=== PATIENT | female | born 1940 | race Caucasian/White ===

== ENCOUNTER 2020-05-09 20:27 | Emergency (ER) | payer MEDICARE, BC ==
[2020-05-09 20:37] VITALS: BP 163/86; PULSE 89
--- NOTE | 2020-05-09 20:52 | EDM.PDOC ---
ED HPI GENERAL MEDICAL PROBLEM - General Chief Complaint: General Stated Complaint: CHECK YOUR BLOOD PRESSURE AND SODIUM PER PT Time Seen by Provider: 05/09/20 20:39 - History of Present Illness INITIAL COMMENTS - FREE TEXT/NARRATIVE: Patient comes emergency department today with complaints of elevated blood pressure and lightheadedness. This patient was at home today and felt a brief episode about 3 hours ago of lightheadedness. She did not have any vertigo symptoms or visual disturbances. No headache. Because of lightheadedness she checked her blood pressure and noted that it was a little bit higher than normal about 160/90. She has been recently struggling with hyponatremia and just discontinued the salt tablet she was taking at home due to her hyponatremia. She really is asymptomatic upon arrival and feels back to normal. She has no headache visual disturbances. No paresthesias. No weakness dizziness lightheadedness. No chest pain no shortness of breath or difficulty breathing. No fever no chills. No abdominal pain. No nausea no vomiting. No hematuria dysuria or urinary frequency. She does feel like she has not been urinating as much as normal. And it somewhat difficult to urinate at times. She denies any Covid exposure and denies covid symptoms. - Related Data Allergies Allergy/AdvReac Type Severity Reaction Status Date / Time cephalexin Allergy Rash Verified 05/09/20 20:39 Home Meds: Home Meds Alendronate Sodium [Fosamax] 70 mg PO WEEKLY 02/15/16 [History] Losartan [Cozaar] 50 mg PO DAILY 02/15/16 [History] Calcium Carbonate/Vitamin D3 [Calcium 250+D] 1 tab PO DAILY 02/17/16 [History] Fish Oil/Borage/Flax/Om3,6,9 1 [[place] 3-6-9 Complex Softgel] 400 mg PO DAILY 02/17/16 [History] Multivitamin [Multivitamins] 1 each PO DAILY 02/17/16 [History] Cranberry Fruit Extract [Cranberry] 200 mg PO DAILY #1 capsule 02/19/16 [Rx] Triamterene/Hydrochlorothiazid [Triamterene-HCTZ 37.5-25 MG] 1 tab PO DAILY 07/21 [History] amLODIPine [Norvasc] 5 mg PO DAILY 05/09/20 [History] Past Medical History Cardiovascular History: Reports: Hypertension 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: Endocrine/Metabolic History: Reports: Osteoporosis Dermatologic History: Reports: Other (See Below) Other Dermatologic History: small spot of "skin cancer" 30 years ago - Infectious Disease History Infectious Disease History: Reports: Measles, Mumps - Past Surgical History HEENT Surgical History: Reports: Tonsillectomy Cardiovascular Surgical History: Reports: None GI Surgical History: Reports: Appendectomy, Cholecystectomy Other GI Surgeries/Procedures: cholecystectomy in 1942 and appendectomy in 1944 Social & Family History - Family History Family Medical History: Noncontributory - Tobacco Use Smoking Status *Q: Never Smoker Second Hand Smoke Exposure: No - Caffeine Use Caffeine Use: Reports: Coffee - Alcohol Use Date of Last Drink: 04/18/20 - Recreational Drug Use Recreational Drug Use: No ED ROS GENERAL - Review of Systems Review Of Systems: Comprehensive ROS is negative, except as noted in HPI. ED EXAM, GENERAL - Physical Exam Exam: See Below Exam Limited By: No Limitations General Appearance: Alert, WD/WN, No Apparent Distress Eye Exam: Bilateral Eye: EOMI, PERRL Ears: Normal External Exam Nose: Normal Inspection Throat/Mouth: Normal Inspection, Normal Lips Head: Atraumatic, Normocephalic Neck: Normal Inspection, Supple, Non-Tender Respiratory/Chest: No Respiratory Distress, Lungs Clear, Normal Breath Sounds, No Accessory Muscle Use Cardiovascular: Normal Peripheral Pulses, Regular Rate, Rhythm Peripheral Pulses: 2+: Radial (L), Radial (R), Posterior Tibial (L), Posterior Tibial (R), Dorsalis Pedis (L), Dorsalis Pedis (R) GI/Abdominal: Normal Bowel Sounds, Soft, Non-Tender (Female) Exam: Deferred Rectal (Female) Exam: Deferred Back Exam: Normal Inspection, Full Range of Motion Extremities: Normal Inspection, Normal Range of Motion, Normal Capillary Refill Neurological: Alert, Oriented, Normal Cognition, No Motor/Sensory Deficits Psychiatric: Normal Affect, Normal Mood Skin Exam: Warm, Dry, Intact, Normal Color, No Rash EKG INTERPRETATION EKG Date: 05/09/20 Time: 20:37 Rhythm: NSR Rate (Beats/Min): 82 [place]: Normal P-Wave: Present QRS: Normal ST-T: Normal QT: Normal Comparison: NA - No Prior EKG Course - Vital Signs Last Recorded V/S: Last Vital Signs Temp 97.7 F 07/09/20 20:36 Pulse 89 05/09/20 20:36 Resp 19 05/09/20 20:36 BP 163/86 H 05/09/20 20:36 Pulse Ox 100 05/09/20 20:36 - Orders/Labs/Meds Orders: Active Orders 24 hr Category Date Time Status EKG Documentation Completion [RC] STAT Care 05/09/20 20:46 Active CULTURE URINE [RM] Stat Lab 05/09/20 22:27 Received Labs: Laboratory Tests 05/09/20 05/09/20 05/09/20 Range/Units 20:55 20:55 22:27 WBC 5.7 (5.0-10.0) 10^3/uL RBC 4.62 (4.2-5.4) 10^6/uL Hgb 13.2 D (12.0-16.0) g/dL Hct 40.4 (37.0-47.0) % MCV 87.4 (80-100) fL MCH 28.6 (27.0-34.0) pg MCHC 32.7 L (33.0-35.0) g/dL Plt Count 360 (150-450) 10^3/uL Neut % (Auto) 58.8 (42.2-75.2) % Lymph % (Auto) 28.5 (20.5-50.1) % [place] % (Auto) 10.4 H (2-8) % Eos % (Auto) 1.8 (1.0-3.0) % Baso % (Auto) 0.5 (0.0-1.0) % Sodium 137 (136-145) mmol/L Potassium 3.7 (3.5-5.1) mmol/L Chloride 101 (98-107) mmol/L Carbon Dioxide 27 (21-32) mmol/L Anion Gap 12.7 (7-13) mEq/L BUN 17 (7-18) mg/dL Creatinine 0.72 (0.55-1.02) mg/dL Est Cr Clr Drug Dosing 44.02 mL/min Estimated GFR (MDRD) > 60 BUN/Creatinine Ratio 23.6 (No establ ref range) Glucose 119 H (74-99) mg/dL Calcium 8.9 (8.5-10.1) mg/dL Magnesium 2.0 (1.8-2.4) mg/dL Total Bilirubin 0.4 (0.2-1.0) mg/dL AST 21 (15-37) U/L ALT 25 (14-59) U/L Alkaline Phosphatase 48 (46-116) U/L Troponin I < 0.017 (0.000-0.056) ng/mL Total Protein 7.2 (6.4-8.2) g/dL Albumin 4.0 (3.4-5.0) g/dL Globulin 3.2 Albumin/Globulin Ratio 1.3 Urine Color Light yellow (YELLOW) Urine Appearance Slightly cloudy (CLEAR) Urine pH 7.5 (5.0-9.0) Ur Specific [place] 1.020 (1.005-1.030) Urine Protein Negative (NEGATIVE) Urine Glucose (UA) Negative (NEGATIVE) Urine Ketones 15 H (NEGATIVE) Urine Occult Blood Trace-lysed H (NEGATIVE) Urine Nitrite Negative (NEGATIVE) Urine Bilirubin Negative (NEGATIVE) Urine Urobilinogen 0.2 (0.2-1.0) mg/dL Ur Leukocyte Esterase Small H (NEGATIVE) Urine RBC 0-5 /HPF Urine WBC 20-30 H (0-5/HPF) /HPF Ur Epithelial Cells Moderate H (NOT SEEN) /HPF Urine Bacteria Moderate H (0-FEW/HPF) /HPF Meds: Medications Discontinued Medications Generic Name Dose Route Start Last Admin Trade Name Freq PRN Reason Stop Dose Admin Nitrofurantoin Macrocrystals 100 mg 05/09/20 22:48 05/09/20 22:56 Macrobid PO 05/09/20 22:49 100 mg ONETIME ONE Administration - Re-Assessments/Exams Free Text/Narrative Re-Assessment/Exam: 05/10/20 00:30 Patient's EKG was unremarkable. Her symptoms resolved pretty much prior to arrival. Are pretty unremarkable other than a urinalysis that shows a urinary tract infection. She does have some vague urinary symptoms therefore we will put her on Macrobid 1 tab p.o. twice daily. Is really concerned about her blood pressure. I told her to check her blood pressure once a day and follow-up with her primary care on Wednesday. Her sodium is in the appropriate range as she is struggled with hyponatremia in the past. She feels much better and she is ready for discharge. She is comfortable with this plan and her questions are answered. Departure - Departure Time of Disposition: 22:49 Disposition: Home, Self-Care 01 Clinical Impression: Lightheadedness Hypertension Qualifiers: Hypertension type: unspecified Qualified Code(s): I10 - Essential (primary) hypertension UTI (urinary tract infection) Qualifiers: Urinary tract infection type: site unspecified Hematuria presence: without hematuria Qualified Code(s): N39.0 - Urinary tract infection, site not specified - Discharge Information Instructions: Hypertension, Adult, [id number] Forms: ED Department Discharge Additional Instructions: Check your blood pressure once daily and record. Report your pressures to your PCP on Wednesday. Your sodium looks great today. Make sure and drink some water as well. Macrobid, 1 tablet twice daily for the next 3 days. Return to the ED if new or worsening symptoms. Sepsis Event Note (ED) - Evaluation Sepsis Screening Result: No Definite Risk - Focused Exam Vital Signs: Vital Signs Temp Pulse Resp BP Pulse Ox 05/09/20 20:36 97.7 F 89 19 163/86 H 100 - My Orders Last 24 Hours: My Active Orders 05/09/20 20:46 EKG Documentation Completion [RC] STAT 05/09/20 22:27 CULTURE URINE [RM] Stat - Assessment/Plan Last 24 Hours: My Active Orders 05/09/20 20:46 EKG Documentation Completion [RC] STAT 05/09/20 22:27 CULTURE URINE [RM] Stat Assessment:: Hypertension Lightheadedness resolved prior to arrival. UTI Plan: Check your blood pressure once daily and record. Report your pressures to your PCP on Wednesday. Your sodium looks great today. Make sure and drink some water as well. Macrobid, 1 tablet twice daily for the next 3 days. Return to the ED if new or worsening symptoms.
[2020-05-09 22:04] LABS: ANION GAP 12.7 mEq/L (7-13); CHLORIDE,CL 101 mmol/L (98-107); SODIUM,NA 137 mmol/L (136-145)
[2020-05-09] MEDS ORDERED: Nitrofurantoin Monohydrate/Macrocrystalline 100 MG Cap PO ONE (22:48)
== END 2020-05-09 22:57 | disposition home or self-care (01) ==
LOC: DL.ED 20:27
DX: N39.0 Urinary tract infection, site not specified (principal); I10 Essential (primary) hypertension; Z88.1 Allergy status to other antibiotic agents; Z79.899 Other long term (current) drug therapy
CPT/HCPCS: 36415; 80053; 81001; 83735; 84484; 85025; 87086; 93005; 99284; A9270

== ENCOUNTER 2020-05-13 18:26 | Observation (INO) | payer MEDICARE, BC ==
[2020-05-13] MEDS ORDERED: Temazepam 15 MG Cap PO PRN (20:53)
[2020-05-13] MEDS ORDERED: Acetaminophen 325 MG Tab PO PRN (20:53)
[2020-05-13] MEDS ORDERED: Docusate Sodium 100 MG Cap PO PRN (20:53)
[2020-05-13] MEDS ORDERED: Ondansetron 4 MG Tab.DIS PO PRN (20:53)
--- NOTE | 2020-05-13 21:03 | PCM.HP ---
H&P History of Present Illness - General Date of Service: 05/13/20 Admit Problem/Dx: Admission Diagnosis/Problem Admission Diagnosis/Problem Hypokalemia Source of Information: Patient, Old Records ([facility]) - History of Present Illness Initial Comments - Free Text/Narative: 79-year-old lady with a history of hypertension, hyponatremia The patient presented with the headache, dizziness, nausea in April 2020. She was noted to have hyponatremia with a sodium of 124. The patient was hospitalized at [facility]. Hyponatremia was felt to be secondary to Maxide She was discharged with salt tablets. Subsequently blood pressure was elevated in the 180s. She was taken off salt tablets. Late April 2020 the patient followed up with Dr. Sullivan from nephrology. The time the sodium was in normal range. 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 4 days prior to this admission the patient was treated with Bactrim for urinary tract infection. She has been trying to push fluids for "not to get dehydrated" The day prior to this admission the patient again developed similar symptoms that she had at the beginning of April. She is complaining of a mild headache associated with the dizziness and nausea. She went to see her primary care physician and was noted to have significant hyponatremia and hypokalemia with sodium of 129 and potassium of 2.8 She denies chest pain. No shortness of breath. She is off antibiotics for a day now. She has no swelling. Did not take diuretics lately. - Related Data Allergies/Adverse Reactions: Allergies Allergy/AdvReac Type Severity Reaction Status Date / Time cephalexin Allergy Nausea Verified 05/13/20 19:39 Home Medications: Home Meds Losartan [Cozaar] 100 mg PO DAILY 02/15/16 [History] Calcium Carbonate/Vitamin D3 [Calcium 250+D] 1 tab PO BID 02/17/16 [History] Fish Oil/Borage/Flax/Om3,6,9 1 [[place] 3-6-9 Complex Softgel] 400 mg PO DAILY 02/17/16 [History] Multivitamin [Multivitamins] 1 each PO DAILY 02/17/16 [History] Cranberry Fruit Extract [Cranberry] 200 mg PO DAILY #1 capsule 02/19/16 [Rx] amLODIPine [Norvasc] 5 mg PO DAILY 05/09/20 [History] Aspirin [Aspirin EC] 81 mg PO 05/13/20 [History] Cholecalciferol (Vitamin D3) [Vitamin D3] 400 unit PO DAILY 05/13/20 [History] Fish Oil/Borage/Flax/Om3,6,9 1 [[place] 3-6-9 1,200 mg Softgel] 1,200 mg PO BID 05/13/20 [History] Past Medical History Cardiovascular History: Reports: Hypertension Genitourinary History: Reports: UTI, Recurrent 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: Endocrine/Metabolic History: Reports: Osteoporosis Dermatologic History: Reports: Other (See Below) Other Dermatologic History: small spot of "skin cancer" 30 years ago - Infectious Disease History Infectious Disease History: Reports: Measles, Mumps - Past Surgical History HEENT Surgical History: Reports: Tonsillectomy Cardiovascular Surgical History: Reports: None GI Surgical History: Reports: Appendectomy, Cholecystectomy Other GI Surgeries/Procedures: cholecystectomy in 194 and appendectomy in 1943 Social & Family History - Family History Family Medical History: Noncontributory - Tobacco Use Smoking Status *Q: Former Smoker Years of Tobacco use: 6 Packs/Tins Daily: 0.5 Used Tobacco, but Quit: Yes Month/Year Tobacco Last Used: Second Hand Smoke Exposure: No - Caffeine Use Caffeine Use: Reports: None - Recreational Drug Use Recreational Drug Use: No H&P Review of Systems - Review of Systems: Review Of Systems: See Below General: Reports: Malaise. Denies: Fever, Chills Pulmonary: Denies: Shortness of Breath Cardiovascular: Denies: Chest Pain, Edema Gastrointestinal: Reports: Nausea. Denies: Diarrhea, Vomiting Psychiatric: Denies: Confusion Exam - Exam Exam: See Below - Vital Signs Weight: 130 lb 8 oz - Exam General: Alert, Oriented Neck: Supple Lungs: Clear to Auscultation, Normal Respiratory Effort Cardiovascular: Regular Rate, Regular Rhythm GI/Abdominal Exam: Normal Bowel Sounds, Soft, Non-Tender Extremities: No Pedal Edema Skin: Warm, Dry Neurological: Cranial Nerves Intact, Strength Equal Bilateral, Normal Speech, Other (Bilateral finger to nose test normal, extraocular movement intact). No: Clonus Neuro Extensive - Mental Status: Alert, Oriented x3, Normal Mood/Affect - Problem List (1) Hypertension SNOMED Code(s): 04150066 ICD Code: I10 - ESSENTIAL (PRIMARY) HYPERTENSION Status: Acute Current Visit: No Qualifiers: Hypertension type: unspecified Qualified Code(s): I10 - Essential (primary) hypertension (2) Hypokalemia SNOMED Code(s): 20902606 ICD Code: E87.6 - HYPOKALEMIA Status: Acute Current Visit: No (3) Hyponatremia SNOMED Code(s): 08222764 ICD Code: E87.1 - HYPO-OSMOLALITY AND HYPONATREMIA Status: Acute Current Visit: No (4) Lightheadedness SNOMED Code(s): 400732786 ICD Code: R42 - DIZZINESS AND GIDDINESS Status: Acute Current Visit: No (5) UTI (urinary tract infection) SNOMED Code(s): 92959115 ICD Code: N39.0 - URINARY TRACT INFECTION, SITE NOT SPECIFIED Status: Acute Current Visit: No Qualifiers: Urinary tract infection type: site unspecified Hematuria presence: without hematuria Qualified Code(s): N39.0 - Urinary tract infection, site not specified Problem List Initiated/Reviewed/Updated: Yes Orders Last 24hrs: Active Orders 24 hr Category Date Time Status Patient Status [ADT] Routine ADT 05/13/20 20:53 Ordered Antiembolic Devices [RC] PER UNIT ROUTINE Care 05/13/20 20:55 Ordered Oxygen Therapy [RC] PRN Care 05/13/20 20:53 Ordered Up With Assistance [RC] ASDIRECTED Care 05/13/20 20:53 Ordered VTE/DVT Education [RC] PER UNIT ROUTINE Care 05/13/20 20:53 Ordered Vital Signs [RC] Q4H Care 05/13/20 20:53 Ordered Regular Diet [DIET] Diet 05/13/20 Breakfast Ordered BASIC METABOLIC PANEL,BMP [CHEM] AM Lab 05/14/20 05:15 Ordered MAGNESIUM [CHEM] AM Lab 05/14/20 05:11 Ordered PHOSPHORUS [CHEM] AM Lab 05/14/20 05:11 Ordered Acetaminophen [Tylenol] Med 05/13/20 20:53 Ordered 650 mg PO Q4H PRN Aspirin [Halfprin] Med 05/13/20 20:30 Unverified DOSE UNIT RTE FREQ Docusate Sodium [Colace] Med 05/13/20 20:53 Ordered 100 mg PO BID PRN Heparin Sodium Med 05/13/20 22:00 Ordered 5,000 units SUBCUT Q8HR Losartan [Cozaar] Med 05/14/20 09:00 Ordered 100 mg PO DAILY Multivitamin [Multivitamins] Med 05/14/20 09:00 Ordered 1 each PO DAILY Ondansetron [Zofran ODT] Med 05/13/20 20:53 Ordered 4 mg PO Q6H PRN Potassium Chloride [Klor-Con 10] Med 05/13/20 21:00 Ordered 40 meq PO BIDMEALS Sodium Chloride 0.9% with KCl [Normal Saline with 40 Med 05/13/20 21:00 Ordered mEq KCl] 1,000 ml IV ASDIRECTED Temazepam [Restoril] Med 05/13/20 20:53 Ordered 15 mg PO BEDTIME PRN amLODIPine [Norvasc] Med 05/14/20 09:00 Ordered 5 mg PO DAILY Antiembolic Hose [OM.PC] Per Unit Routine Oth 05/13/20 20:54 Ordered Resuscitation Status Routine Resus Stat 05/13/20 20:53 Ordered Medication Orders Acetaminophen (Tylenol) 650 mg PO Q4H PRN PRN Reason: Pain (Mild 1-3)/fever Amlodipine Besylate (Norvasc) 5 mg PO DAILY ANJANA Docusate Sodium (Colace) 100 mg PO BID PRN PRN Reason: Constipation Heparin Sodium (Porcine) (Heparin Sodium) 5,000 units SUBCUT Q8HR ANJANA Potassium Chloride/Sodium Chloride (Normal Saline With 40 Meq Kcl) 1,000 mls @ 100 mls/hr IV ASDIRECTED ANJANA Losartan Potassium (Cozaar) 100 mg PO DAILY ANJANA Multivitamins (Thera) 1 each PO DAILY ANJANA Ondansetron HCl (Zofran Odt) 4 mg PO Q6H PRN PRN Reason: nausea, able to take PO Potassium Chloride (Klor-Con 10) 40 meq PO BIDMEALS ANJANA Temazepam (Restoril) 15 mg PO BEDTIME PRN PRN Reason: Sleep Assessment/Plan Comment:: 79-year-old lady with a history of hypertension, hyponatremia The patient presented with the headache, dizziness, nausea in April 2020. She was noted to have hyponatremia with a sodium of 124. The patient was hospitalized at [facility]. Hyponatremia was felt to be secondary to Maxide She was discharged with salt tablets. Subsequently blood pressure was elevated in the 180s. She was taken off salt tablets. Late April 2020 the patient followed up with Dr. Sullivan from nephrology. The time the sodium was in normal range. 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 4 days prior to this admission the patient was treated with Bactrim for urinary tract infection. She has been trying to push fluids for "not to get dehydrated" The day prior to this admission the patient again developed similar symptoms that she had at the beginning of April. She is complaining of a mild headache associated with the dizziness and nausea. She went to see her primary care physician and was noted to have significant hyponatremia and hypokalemia with sodium of 129 and potassium of 2.8 Hyponatremia This might relate to Bactrim With underlying SIADH With pushing oral water intake For now the patient is off Bactrim Will give IV normal saline fluid Discussed fluid restrictions of decreasing free water intake Hypokalemia We'll give IV and oral supplement Recheck in the morning Hypertension For now continue Norvasc and Cozaar We will adjust as needed DVT prophylaxis with subcutaneous heparin
[2020-05-13] MEDS: Potassium Chloride 10 MEQ Tab.ER PO SCH (21:23)
[2020-05-13] MEDS: Sodium Chloride 0.9% with KCl 1,000 ML IV SCH (21:24)
[2020-05-13] MEDS: Heparin Sodium 5,000 Units/ML Vial SUBCUT SCH (21:25)
[2020-05-14] MEDS: Heparin Sodium 5,000 Units/ML Vial SUBCUT SCH (06:01)
[2020-05-14] MEDS: Sodium Chloride 0.9% with KCl 1,000 ML IV SCH (06:15)
[2020-05-14 07:04] LABS: ANION GAP 11.4 mEq/L (7-13); CHLORIDE,CL 102 mmol/L (98-107); SODIUM,NA 136 mmol/L (136-145)
[2020-05-14] MEDS ORDERED: Aspirin 81 MG Tab.Chew PO SCH (08:00)
[2020-05-14] MEDS ORDERED: Losartan 50 MG Tab PO SCH (09:00)
[2020-05-14] MEDS ORDERED: amLODIPine 5 MG Tab PO SCH (09:00)
[2020-05-14] MEDS ORDERED: Multivitamins,Therapeutic Tab PO SCH (09:00)
[2020-05-14] MEDS: Potassium Chloride 10 MEQ Tab.ER PO SCH (09:57)
--- NOTE | 2020-05-14 10:18 | PCM.DCSUM1 ---
Discharge Summary - Hospital Course Free Text/Narrative:: 79-year-old lady with a history of hypertension, hyponatremia The patient presented with the headache, dizziness, nausea in April 2020. She was noted to have hyponatremia with a sodium of 124. The patient was hospitalized at [facility]. Hyponatremia was felt to be secondary to Maxide She was discharged with salt tablets. Subsequently blood pressure was elevated in the 180s. She was taken off salt tablets. Late April 2020 the patient followed up with Dr. Sullivan from nephrology. The time the sodium was in normal range. 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 4 days prior to this admission the patient was treated with Bactrim for urinary tract infection. She has been trying to push fluids for "not to get dehydrated" The day prior to this admission the patient again developed similar symptoms that she had at the beginning of April. She is complaining of a mild headache associated with the dizziness and nausea. She went to see her primary care physician and was noted to have significant hyponatremia and hypokalemia with sodium of 129 and potassium of 2.8 Hyponatremia This might relate to Bactrim With underlying SIADH With pushing oral water intake For now the patient is off Bactrim hyponatremia resolved with IV normal saline fluid Discussed fluid restrictions of decreasing free water intake resume 1 gm PO NaCL supplement Hypokalemia resolved with IV and oral supplement Add PO Kdur Hypertension For now continue Adrienne Diagnosis: Stroke: No - Discharge Data Discharge Date: 05/14/20 Discharge Disposition: Home, Self-Care 01 Condition: Good - Referral to Home Health Primary Care Physician: Ana Del Valle NP - Discharge Diagnosis/Problem(s) (1) Hypertension SNOMED Code(s): 74400365 ICD Code: I10 - ESSENTIAL (PRIMARY) HYPERTENSION Status: Acute Current Visit: No Qualifiers: Hypertension type: unspecified Qualified Code(s): I10 - Essential (primary) hypertension (2) Hypokalemia SNOMED Code(s): 32234572 ICD Code: E87.6 - HYPOKALEMIA Status: Acute Current Visit: No (3) Hyponatremia SNOMED Code(s): 60326630 ICD Code: E87.1 - HYPO-OSMOLALITY AND HYPONATREMIA Status: Acute Current Visit: No (4) Lightheadedness SNOMED Code(s): 269081197 ICD Code: R42 - DIZZINESS AND GIDDINESS Status: Acute Current Visit: No (5) UTI (urinary tract infection) SNOMED Code(s): 76409464 ICD Code: N39.0 - URINARY TRACT INFECTION, SITE NOT SPECIFIED Status: Acute Current Visit: No Qualifiers: Urinary tract infection type: site unspecified Hematuria presence: without hematuria Qualified Code(s): N39.0 - Urinary tract infection, site not specified - Patient Instructions Diet: Heart Healthy Diet Activity: As Tolerated - Discharge Plan *PRESCRIPTION DRUG MONITORING PROGRAM REVIEWED*: Not Applicable *COPY OF PRESCRIPTION DRUG MONITORING REPORT IN PATIENT SISSY: Not Applicable Prescriptions/Med Rec: Potassium Chloride [Klor-Con 10] 20 meq PO DAILY #15 tab.er Sodium Chloride 1 gm PO DAILY #15 tablet Home Medications: Home Meds Losartan [Cozaar] 100 mg PO DAILY 02/15/16 [History] Calcium Carbonate/Vitamin D3 [Calcium 250+D] 1 tab PO BID 02/17/16 [History] Fish Oil/Borage/Flax/Om3,6,9 1 [Star 3-6-9 Complex Softgel] 400 mg PO DAILY 02/17/16 [History] Multivitamin [Multivitamins] 1 each PO DAILY 02/17/16 [History] Cranberry Fruit Extract [Cranberry] 200 mg PO DAILY #1 capsule 02/19/16 [Rx] amLODIPine [Norvasc] 5 mg PO DAILY 05/09/20 [History] Aspirin [Aspirin EC] 81 mg PO DAILY 05/13/20 [History] Cholecalciferol (Vitamin D3) [Vitamin D3] 400 unit PO DAILY 05/13/20 [History] Fish Oil/Borage/Flax/Om3,6,9 1 [Star 3-6-9 1,200 mg Softgel] 1,200 mg PO BID 05/13/20 [History] Potassium Chloride [Klor-Con 10] 20 meq PO DAILY #15 tab.er 05/14/20 [Rx] Sodium Chloride 1 gm PO DAILY #15 tablet 05/14/20 [Rx] Oxygen Therapy Mode: Room Air Referrals: Ana Del Valle NP [Primary Care Provider] - - Discharge Summary/Plan Comment DC Time >30 min.: No - General Info Date of Service: 05/14/20 Subjective Update: Dizziness, lightheadedness, nausea, headache has completely resolved She has been up and moving in the room with no problems No chest pain, no shortness of breath No swelling - Patient Data Vitals - Most Recent: Last Vital Signs Temp 97.3 F 05/14/20 08:00 Pulse 81 05/14/20 08:00 Resp 16 05/14/20 08:00 BP 116/60 05/14/20 09:57 Pulse Ox 98 05/14/20 08:00 Weight - Most Recent: 130 lb 8 oz I&O - Last 24 hours: Intake & Output 05/13/20 05/14/20 05/14/20 22:59 06:59 14:59 Intake Total 1422 Output Total 100 1600 350 Balance -100 -178 -350 Lab Results - Last 24 hrs: Laboratory Results - last 24 hr 05/14/20 Range/Units 06:20 Sodium 136 (136-145) mmol/L Potassium 4.4 (3.5-5.1) mmol/L Chloride 102 (98-107) mmol/L Carbon Dioxide 27 (21-32) mmol/L Anion Gap 11.4 (7-13) mEq/L BUN 18 (7-18) mg/dL Creatinine 0.77 (0.55-1.02) mg/dL Est Cr Clr Drug Dosing TNP Estimated GFR (MDRD) > 60 Glucose 86 (74-99) mg/dL Calcium 8.1 L (8.5-10.1) mg/dL Phosphorus 2.5 L (2.6-4.7) mg/dL Magnesium 2.1 (1.8-2.4) mg/dL Med Orders - Current: Current Medications Acetaminophen (Tylenol) 650 mg PO Q4H PRN PRN Reason: Pain (Mild 1-3)/fever Amlodipine Besylate (Norvasc) 5 mg PO DAILY [facility] Last Admin: 05/14/20 09:56 Dose: 5 mg Documented by: Aspirin (Aspirin) 81 mg PO WITHBREAKFAST [facility] Last Admin: 05/14/20 09:56 Dose: 81 mg Documented by: Docusate Sodium (Colace) 100 mg PO BID PRN PRN Reason: Constipation Heparin Sodium (Porcine) (Heparin Sodium) 5,000 units SUBCUT Q8HR [facility] Last Admin: 05/14/20 06:01 Dose: 5,000 units Documented by: Losartan Potassium (Cozaar) 100 mg PO DAILY [facility] Last Admin: 05/14/20 09:57 Dose: Not Given Documented by: Multivitamins (Thera) 1 each PO DAILY [facility] Last Admin: 05/14/20 09:56 Dose: 1 each Documented by: Ondansetron HCl (Zofran Odt) 4 mg PO Q6H PRN PRN Reason: nausea, able to take PO Temazepam (Restoril) 15 mg PO BEDTIME PRN PRN Reason: Sleep Last Admin: 05/13/20 21:24 Dose: 15 mg Documented by: Discontinued Medications Potassium Chloride/Sodium Chloride (Normal Saline With 40 Meq Kcl) 1,000 mls @ 100 mls/hr IV ASDIRECTED [facility] Last Admin: 05/14/20 06:15 Dose: 100 mls/hr Documented by: Potassium Chloride (Klor-Con 10) 40 meq PO BIDMEALS [facility] Last Admin: 05/14/20 09:57 Dose: Not Given Documented by: - Exam General: Reports: Alert, Oriented Neck: Reports: Supple Lungs: Reports: Clear to Auscultation, Normal Respiratory Effort Cardiovascular: Reports: Regular Rate, Regular Rhythm GI/Abdominal Exam: Normal Bowel Sounds, Soft, Non-Tender Extremities: No Pedal Edema Skin: Reports: Warm, Dry Neurological: Reports: No New Focal Deficit Psy/Mental Status: Reports: Alert, Normal Affect, Normal Mood
[2020-05-14 12:49] VITALS: BP 103/57; PULSE 78
== END 2020-05-14 13:00 | disposition home or self-care (01) ==
LOC: DL.MS 18:26
PROVIDERS: ADMIT Internal Medicine; ATTEND Internal Medicine
DX: E87.6 Hypokalemia (principal); E87.1 Hypo-osmolality and hyponatremia; I10 Essential (primary) hypertension; N39.0 Urinary tract infection, site not specified; Z88.1 Allergy status to other antibiotic agents; Z79.82 Long term (current) use of aspirin; Z79.899 Other long term (current) drug therapy; Z87.891 Personal history of nicotine dependence
CPT/HCPCS: 36415; 80048; 83735; 84100; 96365; 96366; 96372; A9270-GY; G0378; G0379; J1644; J3480

== ENCOUNTER 2022-06-08 12:39 | Emergency (ER) | payer MEDICARE, BC ==
[2022-06-08] MEDS ORDERED: Sodium Chloride 0.9% 10 ML Syringe FLUSH PRN (12:55)
[2022-06-08 14:40] VITALS: BP 123/54; PULSE 45
== END 2022-06-08 14:32 | disposition home or self-care (01) ==
LOC: DL.ED 12:39
DX: I44.0 Atrioventricular block, first degree (principal); I10 Essential (primary) hypertension; Z90.49 Acquired absence of other specified parts of digestive tract; Z88.1 Allergy status to other antibiotic agents; Z79.899 Other long term (current) drug therapy; Z79.82 Long term (current) use of aspirin
CPT/HCPCS: 36415; 71045; 80053; 81001; 83735; 84443; 84484; 85025; 93005; 93010; 99284